=== PATIENT | male | born 1950 | race Caucasian/White ===

== ENCOUNTER 2018-12-29 17:56 | Emergency (ER) | payer MEDICARE ==
[2018-12-29 18:40] LABS: BASOPHILS # (AUTO) 0.1 10^3/uL (0.0-0.1); BASOPHILS % (AUTO) 0.5 %; EOSINOPHILS % (AUTO) 0.1 %; HGB - HEMOGLOBIN 13.3 g/dL (14.0-18.0); LYMPHOCYTES # (AUTO) 1.4 10^3/uL (1.5-3.5); LYMPHOCYTES % (AUTO) 9.4 %; MEAN CORPUSCULAR HEMOGLOBIN 30.9 pg (27.0-31.0); MEAN CORPUSCULAR HGB CONC 34.3 g/dL (32.0-36.0); MEAN CORPUSCULAR VOLUME 90.2 fL (80.0-94.0); MEAN PLATELET VOLUME 7.2 fL (7.4-11.4); MONOCYTES # (AUTO) 0.8 10^3/uL (0.0-1.0); MONOCYTES % (AUTO) 5.5 %; NEUTROPHILS # (AUTO) 12.3 10^3/uL (1.5-6.6); NEUTROPHILS % (AUTO) 84.5 %; PLT - PLATELET COUNT 285 10^3/uL (130-450); RED BLOOD COUNT 4.32 10^6/uL (4.70-6.10); RED CELL DISTRIBUTION WIDTH 12.5 % (12.0-15.0); WHITE BLOOD COUNT 14.6 x10^3/uL (4.8-10.8)
[2018-12-29] MEDS ORDERED: MORPHINE 2 MG/ML CARPUJECT IVP STA (18:50)
--- NOTE | 2018-12-29 18:53 | ED Physician Documentation ---
PD HPI ABD PAIN - Stated complaint Stated Complaint: ABD PX - Chief complaint Chief Complaint: Abd Pain - History obtained from History obtained from: Patient - History of Present Illness Timing - onset: Today (Fairly abruptly at noon today he developed lower abdominal pain associated with dry heaves but the nausea is gone. He tried having bowel movements several times thinking it might help but it did not. It actually turned a little watery. He thinks it is reminiscent of prior diverticulitis. He is never had a colonoscopy before. He does have coronary disease with remote bypass, cardiac arrest with AICD and stenting.) Review of Systems Ten Systems: 10 systems reviewed and negative Constitutional: denies: Fever, Chills Cardiac: denies: Chest pain / pressure, Palpitations Respiratory: denies: Dyspnea, Cough PD PAST MEDICAL HISTORY - Past Medical History Past Medical History: Yes Cardiovascular: Hypertension, [place] - Past Surgical History Past Surgical History: Yes Cardiovascular: CABG, Coronary stent - Present Medications Home Medications: Ambulatory Orders Medication Instructions Recorded Confirmed Ciprofloxacin HCl [Cipro] 500 mg PO BID #14 tablet 12/29/18 Clopidogrel [Plavix] 1 tab PO DAILY 12/29/18 12/29/18 Hydrocodone/Acetaminophen 1 - 2 each PO Q6H PRN #14 tablet 12/29/18 [Hydrocodon-Acetaminophen 5-325] Metoprolol Tartrate 1 tab PO BID 12/29/18 12/29/18 Metronidazole [Flagyl] 500 mg PO TID #20 tablet 12/29/18 Simvastatin 40 mg PO DAILY 12/29/18 12/29/18 Venlafaxine ER [Effexor ER] 1 tab PO DAILY 12/29/18 12/29/18 amLODIPine [Norvasc] 1 tab PO DAILY 12/29/18 12/29/18 - Allergies Allergies/Adverse Reactions: Allergies Allergy/AdvReac Type Severity Reaction Status Date / Time Penicillins Allergy Rash Verified 12/29/18 18:05 - Social History Does the pt drink ETOH?: No - Family History Family history: reports: Non contributory PD ED PE NORMAL - Vitals Vital signs reviewed: Yes - General General: Alert and oriented X 3, No acute distress - HEENT HEENT: PERRL, EOMI - Neck Neck: Supple, no meningeal sign, No bony TTP - Cardiac Cardiac: RRR, No murmur - Respiratory Respiratory: No respiratory distress, Clear bilaterally - Abdomen Abdomen: Normal bowel sounds, Soft, Other (Mild diffuse and significant left lower quadrant tenderness without surgical signs) - Back Back: No CVA TTP, No spinal TTP - Derm Derm: Normal color, Warm and dry - Extremities Extremities: No edema, No calf tenderness / cord - Neuro Neuro: Alert and oriented X 3, Normal speech - Psych Psych: Normal mood, Normal affect Results - Vitals Vitals: Vital Signs - 24 hr 12/29/18 12/29/18 18:02 18:38 Temperature 35.7 C L Heart Rate 83 Respiratory 14 18 Rate Blood Pressure 199/90 H O2 Saturation 97 - Labs Labs: Laboratory Tests 12/29/18 12/29/18 12/29/18 18:34 18:34 19:25 WBC 14.6 H RBC 4.32 L Hgb 13.3 L Hct 39.0 L MCV 90.2 MCH 30.9 MCHC 34.3 RDW 12.5 Plt Count 285 MPV 7.2 L Neut # (Auto) 12.3 H Lymph # (Auto) 1.4 L [place] # (Auto) 0.8 Eos # (Auto) 0.0 Baso # (Auto) 0.1 Absolute Nucleated RBC 0.00 Nucleated RBC % 0.0 Sodium 135 Potassium 4.2 Chloride 101 Carbon Dioxide 22 Anion Gap 12.0 BUN 16 Creatinine 0.9 Estimated GFR (MDRD) 84 L Glucose 173 H Calcium 8.6 Total Bilirubin 0.9 AST 30 ALT 27 Alkaline Phosphatase 69 Total Protein 6.8 Albumin 3.6 Globulin 3.2 Albumin/Globulin Ratio 1.1 Lipase 23 Urine Color YELLOW Urine Clarity CLEAR Urine pH 6.0 Ur Specific [place] 1.020 Urine Protein NEGATIVE Urine Glucose (UA) NEGATIVE Urine Ketones 40 H Urine Occult Blood SMALL H Urine Nitrite NEGATIVE Urine Bilirubin NEGATIVE Urine Urobilinogen 0.2 (NORMAL) Ur Leukocyte Esterase NEGATIVE Urine RBC 0-5 Urine WBC 0-3 Ur Squamous Epith Cells MOD Squamous H Urine Bacteria None Seen Ur Microscopic Review INDICATED Urine Culture Comments NOT INDICATED - Rads (name of study) CT A/P Radiology: EMP read contemporaneously (Diverticulosis without diverticulitis. Mild to moderate right hydronephrosis with perinephric inflammation without obstructing stone identified, could be a recently passed stone or infection.) PD MEDICAL DECISION MAKING - ED course ED course: 68-year-old gentleman with lower abdominal pain today, exam more consistent with diverticulitis than anything else. He is only been in pain for about 8 hours now so I suspect the CT at this point is a false negative for diverticulitis. There is no evidence on the urinalysis of any acute process and his pain does not radiate to the right side or flank. Departure - Departure Disposition: Home, Self Care Clinical Impression: Diverticulitis of gastrointestinal tract Hydronephrosis Qualifiers: Hydronephrosis type: unspecified Qualified Code(s): N13.30 - Unspecified hydronephrosis Condition: Good Record reviewed to determine appropriate education?: Yes Instructions: ED Diverticulitis Prescriptions: Ciprofloxacin HCl [Cipro] 500 mg PO BID #14 tablet Hydrocodone/Acetaminophen [Hydrocodon-Acetaminophen 5-325] 1 - 2 each PO Q6H PRN #14 tablet PRN Reason: pain Metronidazole [Flagyl] 500 mg PO TID #20 tablet Comments: Do not drink alcohol while on the antibiotics. Return for new or worsening symptoms. You do have a swollen right kidney, I do not have a good explanation for that as it does not fit your clinical symptoms. Recheck this with your doctor, also as discussed since you have never had a colonoscopy need to schedule one. Return if not better in 24 hours.
[2018-12-29 18:54] LABS: ALBUMIN 3.6 g/dL (3.2-5.5); ALBUMIN/GLOBULIN RATIO 1.1 (1.0-2.2); BILIRUBIN,TOTAL 0.9 mg/dL (0.2-1.0); CALCIUM 8.6 mg/dL (8.5-10.3); CREATININE 0.9 mg/dL (0.6-1.2); TOTAL PROTEIN 6.8 g/dL (6.7-8.2)
[2018-12-29] MEDS ORDERED: IOVERSOL 320 100 ML VIAL IVP ONE ×2 (19:07→19:18)
[2018-12-29 19:40] LABS: BILIRUBIN,URINE NEGATIVE (NEGATIVE); GLUCOSE, URINE (UA) NEGATIVE (NEGATIVE); KETONES,URINE (UA) 40 mg/dL (NEGATIVE); LEUKOCYTE ESTERASE, URINE NEGATIVE (NEGATIVE); NITRITE,URINE NEGATIVE (NEGATIVE); OCCULT BLOOD,URINE SMALL (NEGATIVE); PROTEIN,URINE NEGATIVE (NEGATIVE); UROBILINOGEN,URINE 0.2 (NORMAL) E.U./dL (NORMAL)
[2018-12-29 19:53] LABS: CLARITY,URINE CLEAR (CLEAR)
--- NOTE | 2018-12-29 19:54 | CT Report ---
Reason: IV only, low abd pain Procedure Date: 12/29/2018 Accession Number: [id number] / [id number] Procedure: CT - Abdomen/Pelvis W CPT Code: FULL RESULT: EXAM: CT ABDOMEN AND PELVIS EXAM DATE: 12/29/2018 07:16 PM. CLINICAL HISTORY: IV only, low abd pain. COMPARISONS: None. TECHNIQUE: Routine helical CT imaging was performed through the abdomen and pelvis. IV contrast: OPTI 320 100mL. Enteric contrast: No. Reconstructions: Coronal and sagittal. In accordance with CT protocol optimization, one or more of the following dose reduction techniques were utilized for this exam: automated exposure control, adjustment of mA and/or KV based on patient size, or use of iterative reconstructive technique. FINDINGS: Lung Bases: Coronary artery disease. AICD lead is in the right ventricle. Normal heart size. Liver: No focal lesion. Gallbladder/Bile Ducts: Unremarkable. Spleen: Normal. Pancreas: Atrophic. Adrenal Glands: Normal. Kidneys: Mild to moderate right hydronephrosis with perinephric inflammation and mildly delayed enhancement compared to the left kidney. No cortical hypoattenuation. No obstructing stone or lesion identified The left kidney is unremarkable. Peritoneal Cavity/Bowel: No bowel obstruction. Diverticulosis without acute inflammatory changes. No free fluid, free air or adenopathy. No acute inflammatory process. Normal appendix. Pelvic Organs: Unremarkable bladder without visualized stone. Prostate gland is unremarkable. Vasculature: Atherosclerosis. No aortic aneurysm. Bones: Lumbar facet arthrosis. Other: None. IMPRESSION: 1. Mild to moderate right hydronephrosis with perinephric inflammation and mildly delayed enhancement relative to the left kidney. No obstructing stone identified. These findings may be due to a recently passed stone. Infection difficult to exclude. 2. Diverticulosis without acute diverticulitis. RADIA
[2018-12-29 20:05] LABS: BACTERIA,URINE None Seen /HPF (None Seen); RBC,URINE 0-5 /HPF (0-5); SQUAMOUS EPITHELIAL CELL,UR MOD Squamous (<= Few)
[2018-12-29] MEDS ORDERED: metroNIDAZOLE 250 MG TABLET PO STA (20:22)
[2018-12-29] MEDS ORDERED: HYDROcod/ACET 5/325 Prepack 4 PO STA (20:22)
[2018-12-29] MEDS ORDERED: CIPROFLOXACIN 250 MG TABLET PO STA (20:22)
[2018-12-29] MEDS ORDERED: metroNIDAZOLE 250 MG TABLET PO ONE (20:55)
[2018-12-29 21:02] VITALS: BP 187/87
== END 2018-12-29 21:02 | disposition home or self-care (01) ==
LOC: ED 17:56
DX: K57.92 Diverticulitis of intestine, part unspecified, without perforation or abscess without bleeding (principal); N13.30 Unspecified hydronephrosis; I10 Essential (primary) hypertension; Z95.1 Presence of aortocoronary bypass graft
CPT/HCPCS: 36415; 74177; 80053; 81001; 83690; 85025; 96374; 99283; A9270; Q9967; 81003; 87086

== ENCOUNTER 2019-02-27 05:12 | Emergency (ER) | payer MEDICARE ==
[2019-02-27] MEDS ORDERED: ONDANSETRON 4 MG/2 ML VIAL IVP STA (06:00)
[2019-02-27] MEDS ORDERED: KETOROLAC 30 MG/ML VIAL IVP STA (06:00)
[2019-02-27] MEDS ORDERED: SODIUM CHLORIDE 0.9% 1,000 ML IV ONE (06:00)
--- NOTE | 2019-02-27 06:05 | ED Physician Documentation ---
PD HPI ABD PAIN - Stated complaint Stated Complaint: ABD PX - Chief complaint Chief Complaint: Abd Pain - History obtained from History obtained from: Patient - History of Present Illness Timing - onset: Enter time (2300), Last night Timing - duration: Hours Timing - details: Abrupt onset, Still present Quality: Sharp, Pain Location: RLQ Radiation: Right flank Improved by: Other (nothing) Worsened by: Other (nothing) Associated symptoms: Nausea, Vomiting Similar symptoms before: Diagnosis (Renal stone, diverticulitis) Recently seen: Emergency Dept - Additional information Additional information: 68-year-old male with a prior history of coronary artery disease status post cardiac arrest with a AICD in place Has developed acute right lower quadrant abdominal pain last night at about 11 PM. He states that about 1 AM he began to have some vomiting and he vomited bile and has had dry heaves. He has had an episode of left-sided pain which he states was much less in the degree of pain about 6 weeks ago. At that time he was treated for diverticulitis and he states that it took about the whole 10 days to week to resolve that illness. Review of Systems Constitutional: denies: Fever Eyes: denies: Decreased vision Ears: denies: Ear pain Nose: denies: Rhinorrhea / runny nose, Congestion Throat: denies: Sore throat Cardiac: denies: Chest pain / pressure, Palpitations Respiratory: denies: Dyspnea, Cough GI: reports: Abdominal Pain, Nausea, Vomiting : denies: Dysuria, Frequency Skin: denies: Rash, Lesions Musculoskeletal: reports: Back pain. denies: Neck pain, Extremity pain Neurologic: denies: Generalized weakness, Focal weakness, Numbness, Difficulty speaking PD PAST MEDICAL HISTORY - Past Medical History Past Medical History: Yes Cardiovascular: Hypertension, High cholesterol, Coronary artery disease, [place] Endocrine/Autoimmune: Type 2 diabetes - Past Surgical History Past Surgical History: Yes Cardiovascular: CABG, Coronary stent, AICD - Present Medications Home Medications: Ambulatory Orders Medication Instructions Recorded Confirmed Clopidogrel [Plavix] 1 tab PO DAILY 12/29/18 02/27/19 RX: Metoprolol Tartrate 1 tab PO BID 12/29/18 02/27/19 RX: Simvastatin 40 mg PO DAILY 12/29/18 02/27/19 RX: Venlafaxine ER [Effexor ER] 1 tab PO DAILY 12/29/18 02/27/19 RX: amLODIPine [Norvasc] 1 tab PO DAILY 12/29/18 02/27/19 Hydrocodone/Acetaminophen 1 - 2 each PO Q6H PRN #14 tablet 02/27/19 [Hydrocodon-Acetaminophen 5-325] RX: Aspirin 81 mg PO 02/27/19 metFORMIN [Glucophage] 500 mg PO BID 02/27/19 02/27/19 - Allergies Allergies/Adverse Reactions: Allergies Allergy/AdvReac Type Severity Reaction Status Date / Time Penicillins Allergy Rash Verified 12/29/18 18:05 - Social History Does the pt smoke?: No Smoking Status: Former smoker Does the pt drink ETOH?: Yes Does the pt have substance abuse?: No PD ED PE NORMAL - Vitals Vital signs reviewed: Yes (hypertensive ) - General General: Alert and oriented X 3, No acute distress, Well developed/nourished - HEENT HEENT: Atraumatic, PERRL, EOMI - Neck Neck: Supple, no meningeal sign, No bony TTP - Cardiac Cardiac: RRR, No murmur - Respiratory Respiratory: No respiratory distress, Clear bilaterally - Abdomen Abdomen: Soft, Non tender, Other (large protruberant abdomen without tenderness. ) - Back Back: No CVA TTP, No spinal TTP - Derm Derm: Normal color, Warm and dry, No rash - Extremities Extremities: No deformity, No edema - Neuro Neuro: Alert and oriented X 3, hospice volunteer coordinator 2-12 intact, No motor deficit, No sensory deficit, Normal speech Eye Opening: Spontaneous Motor: Obeys Commands Verbal: Oriented GCS Score: 15 - Psych Psych: Normal mood, Normal affect Results - Vitals Vitals: Vital Signs - 24 hr 02/27/19 02/27/19 05:15 06:31 Temperature 36.6 C Heart Rate 65 59 L Respiratory 20 16 Rate Blood Pressure 212/97 H 169/80 H O2 Saturation 99 98 Oxygen O2 Source Room air - EKG (time done) 0535 Rate: Rate (enter#) (63) Rhythm: NSR Ischemia: Normal ST segments Compare to prior EKG: Old EKG unavailable Computer interpretation: Agree with computer - Labs Labs: Laboratory Tests 02/27/19 02/27/19 02/27/19 05:30 05:30 05:30 WBC 17.7 H RBC 4.36 L Hgb 13.8 L Hct 39.7 L MCV 91.2 MCH 31.7 H MCHC 34.7 RDW 13.0 Plt Count 331 MPV 7.7 Neut # (Auto) 13.1 H Lymph # (Auto) 2.9 Gem # (Auto) 1.4 H Eos # (Auto) 0.1 Baso # (Auto) 0.1 Absolute Nucleated RBC 0.02 Nucleated RBC % 0.1 Sodium 133 L Potassium 4.2 Chloride 97 L Carbon Dioxide 22 Anion Gap 14.0 H BUN 16 Creatinine 1.0 Estimated GFR (MDRD) 75 L Glucose 205 H Lactic Acid Calcium 9.4 Total Bilirubin 0.6 AST 26 ALT 18 Alkaline Phosphatase 68 Troponin I < 0.04 Total Protein 7.6 Albumin 4.0 Globulin 3.6 Albumin/Globulin Ratio 1.1 Lipase 24 02/27/19 05:30 WBC RBC Hgb Hct MCV MCH MCHC RDW Plt Count MPV Neut # (Auto) Lymph # (Auto) Gem # (Auto) Eos # (Auto) Baso # (Auto) Absolute Nucleated RBC Nucleated RBC % Sodium Potassium Chloride Carbon Dioxide Anion Gap BUN Creatinine Estimated GFR (MDRD) Glucose Lactic Acid 2.8 H Calcium Total Bilirubin AST ALT Alkaline Phosphatase Troponin I Total Protein Albumin Globulin Albumin/Globulin Ratio Lipase - Rads (name of study) CT ab/pel without Radiology: Prelim report reviewed (Impression: 1. Moderate right-sided hydronephrosis secondary to obstructing 3 mm right UPJ stone. Perinephric and bryanna-ureteroenteric fat stranding is present. 2 There are no additional intrarenal stones within the right or left kidney.), EMP read indepedently, See rad report Procedures - Bedside sono Bedside sono by EMP: With the use of bedside ultrasound the right kidney is imaged it is sonographically nontender there is evidence of hydronephrosis. - IVC sono (time) 0600 Bedside IVC sono: IVC measures (cm) (1.14), IVC collapsed c insp (cm) (complete), Dehydration (est 1-2 liter deficit) PD MEDICAL DECISION MAKING - ED course Complexity details: reviewed results, re-evaluated patient, considered differential, d/w patient ED course: 68-year-old male presenting with right lower quadrant abdominal pain without tenderness has a 3 mm obstructing stone at the UPJ and he has relief with the use of 30 mg of Toradol intravenously and saline 1 liter. Departure - Departure Disposition: 01 Home, Self Care Clinical Impression: Ureterolithiasis Condition: Stable Instructions: ED Stone Renal W Colic Follow-Up: RIDGE RUTH MD [Physician No Access] - Prescriptions: Hydrocodone/Acetaminophen [Hydrocodon-Acetaminophen 5-325] 1 - 2 each PO Q6H PRN #14 tablet PRN Reason: pain
[2019-02-27 06:07] LABS: BASOPHILS # (AUTO) 0.1 10^3/uL (0.0-0.1); BASOPHILS % (AUTO) 0.7 %; EOSINOPHILS # (AUTO) 0.1 10^3/uL (0.0-0.7); EOSINOPHILS % (AUTO) 0.6 %; HGB - HEMOGLOBIN 13.8 g/dL (14.0-18.0); LYMPHOCYTES # (AUTO) 2.9 10^3/uL (1.5-3.5); LYMPHOCYTES % (AUTO) 16.2 %; MEAN CORPUSCULAR HEMOGLOBIN 31.7 pg (27.0-31.0); MEAN CORPUSCULAR HGB CONC 34.7 g/dL (32.0-36.0); MEAN CORPUSCULAR VOLUME 91.2 fL (80.0-94.0); MEAN PLATELET VOLUME 7.7 fL (7.4-11.4); MONOCYTES # (AUTO) 1.4 10^3/uL (0.0-1.0); MONOCYTES % (AUTO) 8.2 %; NEUTROPHILS # (AUTO) 13.1 10^3/uL (1.5-6.6); NEUTROPHILS % (AUTO) 74.3 %; PLT - PLATELET COUNT 331 10^3/uL (130-450); RED BLOOD COUNT 4.36 10^6/uL (4.70-6.10); WHITE BLOOD COUNT 17.7 x10^3/uL (4.8-10.8)
[2019-02-27 06:17] LABS: ALBUMIN/GLOBULIN RATIO 1.1 (1.0-2.2); BILIRUBIN,TOTAL 0.6 mg/dL (0.2-1.0); CALCIUM 9.4 mg/dL (8.5-10.3); TOTAL PROTEIN 7.6 g/dL (6.7-8.2)
--- NOTE | 2019-02-27 06:59 | CT Report ---
Reason: RLQ pain non-tender bad pain Procedure Date: 02/27/2019 Accession Number: [id number] / [id number] Procedure: CT - Abdomen/Pelvis WO CPT Code: FULL RESULT: EXAM: CT ABDOMEN AND PELVIS (CT KUB) EXAM DATE: 02/27/2019 06:30 AM. CLINICAL HISTORY: Severe right lower abdominal pain since 7:30 PM. Nausea and vomiting. COMPARISONS: ABDOMEN/PELVIS W/ 12/29/2018 7:16 PM. TECHNIQUE: Routine axial helical CT imaging was performed through the abdomen and pelvis without IV contrast. Reconstructions: Coronal and sagittal. In accordance with CT protocol optimization, one or more of the following dose reduction techniques were utilized for this exam: automated exposure control, adjustment of mA and/or KV based on patient size, or use of iterative reconstructive technique. FINDINGS: Right Kidney/Ureter: There is moderate right-sided hydroureteronephrosis secondary to an obstructing 3 mm stone at the right UPJ (image 62 of series 5). Overall, this is similar to the prior study. There is associated moderate right sided perinephric fat stranding noted. No additional intrarenal stones on the right or the left kidney seen at this time. No definite renal mass within the confines of a non-contrast exam. Left Kidney/Ureter: No stones. No hydronephrosis or hydroureter. No definite renal mass within the confines of a non-contrast exam. Abdominal Solid Organs: Abdominal parenchymal organs are without significant abnormality within the confines of a noncontrast exam. Bowel: No evidence of bowel obstruction. Severe sigmoid diverticulosis is noted without definite evidence of diverticulitis. There is also moderate to severe descending colon diverticulosis and mild to moderate transfers colon diverticulosis. Appendix: Normal. Lymph Nodes: No definite pathologic lymphadenopathy. Fluid: No significant ascites. Vasculature: Normal caliber aorta. Pelvis: No bladder stones. Visualized pelvic organs are without significant abnormality within the confines of a noncontrast exam. Bones: No definite suspicious bony lesions demonstrated. Lower Chest: No significant lung base consolidation or effusion. IMPRESSION: 1. Moderate right-sided hydroureteronephrosis secondary to an obstructing 3 mm right UPJ stone. Perinephric and periureteric fat stranding is present. 2. There are no additional intrarenal stones within the right or left kidney. RAD[facility]
[2019-02-27 07:48] LABS: BILIRUBIN,URINE NEGATIVE (NEGATIVE); GLUCOSE, URINE (UA) NEGATIVE (NEGATIVE); KETONES,URINE (UA) 15 mg/dL (NEGATIVE); LEUKOCYTE ESTERASE, URINE NEGATIVE (NEGATIVE); NITRITE,URINE NEGATIVE (NEGATIVE); OCCULT BLOOD,URINE LARGE (NEGATIVE); PH,URINE 6.5 PH (5.0-7.5); PROTEIN,URINE TRACE mg/dL (NEGATIVE); UROBILINOGEN,URINE 0.2 (NORMAL) E.U./dL (NORMAL)
[2019-02-27 08:05] LABS: CLARITY,URINE HAZY (CLEAR)
[2019-02-27 08:06] LABS: BACTERIA,URINE None Seen /HPF (None Seen); RBC,URINE TNTC /HPF (0-5); SQUAMOUS EPITHELIAL CELL,UR FEW Squamous (<= Few)
[2019-02-27 08:07] LABS: CASTS, URINE 0-2 Course Granular /LPF
[2019-02-27 08:40] VITALS: BP 166/88
== END 2019-02-27 08:36 | disposition home or self-care (01) ==
LOC: ED 05:12
DX: N13.2 Hydronephrosis with renal and ureteral calculous obstruction (principal); E86.0 Dehydration; I10 Essential (primary) hypertension; E11.9 Type 2 diabetes mellitus without complications; Z79.84 Long term (current) use of oral hypoglycemic drugs; I25.10 Atherosclerotic heart disease of native coronary artery without angina pectoris; I25.2 Old myocardial infarction; Z95.810 Presence of automatic (implantable) cardiac defibrillator; Z95.1 Presence of aortocoronary bypass graft; Z95.5 Presence of coronary angioplasty implant and graft; Z79.02 Long term (current) use of antithrombotics/antiplatelets; Z79.82 Long term (current) use of aspirin
CPT/HCPCS: 36415; 74176; 80053; 81001; 81003; 83605; 83690; 84484; 85025; 87086; 93005; 96374; 99283; 99284

== ENCOUNTER 2023-05-01 14:17 | Emergency (ER) | payer MEDICARE ==
[2023-05-01] MEDS ORDERED: ONDANSETRON 4 MG/2 ML VIAL IVP STA (14:28)
[2023-05-01] MEDS ORDERED: SODIUM CHLORIDE 0.9% 1,000 ML IV STA (14:28)
[2023-05-01] MEDS ORDERED: KETOROLAC 15 MG/ML VIAL IVP STA (14:29)
--- NOTE | 2023-05-01 14:37 | ED Physician Documentation ---
History of Present Illness - Stated complaint Stated Complaint: LT SIDE PX,DISCOMFORT - Chief complaint Chief Complaint: General - Additonal information Additional information: 72-year-old male presents emergency department for evaluation of 2 days left- sided low back pain with radiation to the groin. Reports the pain as constant and sharp. It got so painful this morning he had difficulty getting out of bed. He denies fevers, dysuria or diarrhea. He does report 2 days of constipation. He states that in the past he has had similar symptoms on the right side which did show a right-sided ureter stone. Past medical history most significant for hypertension, diabetes and coronary artery disease status post CABG as well as stenting x4. Currently on Plavix and Flomax. This time he denies chest pain or shortness of air Review of Systems Constitutional: denies: Fever Cardiac: reports: Reviewed and negative Respiratory: reports: Reviewed and negative GI: reports: Abdominal Pain, Constipation : reports: Reviewed and negative Skin: reports: Reviewed and negative PD PAST MEDICAL HISTORY - Past Medical History Cardiovascular: Hypertension, High cholesterol, Coronary artery disease, [place] Endocrine/Autoimmune: Type 2 diabetes - Past Surgical History Past Surgical History: Yes Cardiovascular: CABG, Coronary stent, AICD - Present Medications Home Medications: Ambulatory Orders Medication Instructions Recorded Confirmed Clopidogrel [Plavix] 1 tab PO DAILY 12/29/18 02/27/19 Metoprolol Tartrate 1 tab PO BID 12/29/18 02/27/19 Simvastatin 40 mg PO DAILY 12/29/18 02/27/19 Venlafaxine ER [Effexor ER] 1 tab PO DAILY 12/29/18 02/27/19 amLODIPine [Norvasc] 1 tab PO DAILY 12/29/18 02/27/19 Aspirin 81 mg PO 02/27/19 Hydrocodone/Acetaminophen 1 - 2 each PO Q6H PRN #14 tablet 02/27/19 [Hydrocodon-Acetaminophen 5-325] metFORMIN [Glucophage] 500 mg PO BID 02/27/19 02/27/19 Ciprofloxacin HCl [Cipro] 500 mg PO BID #14 tablet 05/01/23 HYDROcod/ACETAM 5/325 [[place] 5/325] 1 tablet PO BID PRN #10 tablet 05/01/23 metroNIDAZOLE [Flagyl] 500 mg PO BID 7 Days #14 tablet 05/01/23 - Allergies Allergies/Adverse Reactions: Allergies Allergy/AdvReac Type Severity Reaction Status Date / Time Penicillins Allergy Rash Verified 12/29/18 18:05 - Social History Does the pt smoke?: No Smoking Status: Former smoker Does the pt drink ETOH?: Yes Does the pt have substance abuse?: No PD ED PE NORMAL - General General: Alert and oriented X 3, No acute distress, Well developed/nourished - HEENT HEENT: Atraumatic - Neck Neck: Supple, no meningeal sign - Cardiac Cardiac: RRR, No murmur - Respiratory Respiratory: No respiratory distress, Clear bilaterally - Abdomen Abdomen: Normal bowel sounds, Soft. No: Non tender (Focal tenderness in the left lower quadrant with radiation to the groin. 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 Eye Opening: Spontaneous Motor: Obeys Commands Verbal: Oriented GCS Score: 15 Results - Vitals Vitals: Vital Signs - 24 hr 05/01/23 14:24 Temperature 36.8 C Heart Rate 100 Respiratory 20 Rate Blood Pressure 151/111 H O2 Saturation 97 Oxygen O2 Source Room air - Labs Labs: Laboratory Tests 05/01/23 05/01/23 05/01/23 14:39 14:39 15:08 WBC 12.5 H RBC 4.67 L Hgb 14.9 Hct 43.1 MCV 92.3 MCH 31.9 H MCHC 34.6 RDW 12.4 Plt Count 325 MPV 9.1 Neut # (Auto) 7.0 H Lymph # (Auto) 3.8 H [place] # (Auto) 1.4 H Eos # (Auto) 0.2 Baso # (Auto) 0.1 Absolute Nucleated RBC 0.00 Nucleated RBC % 0.0 Sodium 133 L Potassium 3.7 Chloride 99 L Carbon Dioxide 21 Anion Gap 13.0 BUN 9 Creatinine 0.8 Estimated GFR (MDRD) 96 Glucose 196 H Calcium 8.8 Total Bilirubin 1.0 AST 26 ALT 23 Alkaline Phosphatase 65 Total Protein 7.5 Albumin 3.9 Globulin 3.6 Albumin/Globulin Ratio 1.1 Lipase 29 Urine Color YELLOW Urine Clarity CLEAR Urine pH 5.0 Ur Specific Grubbs 1.025 Urine Protein NEGATIVE Urine Glucose (UA) NEGATIVE Urine Ketones NEGATIVE Urine Occult Blood TRACE-INTA Urine Nitrite NEGATIVE Urine Bilirubin NEGATIVE Urine Urobilinogen 0.2 (NORMAL) Ur Leukocyte Esterase NEGATIVE Ur Microscopic Review NOT INDICATED Urine Culture Comments NOT INDICATED - Rads (name of study) CT abd Relevant Findings:: Final report received (Mild left pelviectasis with normal diameter ureter. No obstructing calculus. This was also seen previously and may represent longstanding mild UPJ obstruction. Colonic diverticulosis. Questionable mild fat stranding around the sigmoid colon could represent resolving or minimal inflammation. Mode) PD Medical Decision Making - ED course Complexity details: reviewed results, re-evaluated patient, d/w patient ED course: 72-year-old male presents emergency department for evaluation of acute left low back, abdominal pain that radiates to the groin. He does have a remote history of ureter colic on the right side. He has no history of previous colonoscopy and states that he has been constipated for 2 days. On exam he had quite reproducible pain in the left lower quadrant of the abdomen. Obtain CBC, electrolytes and urinalysis. Per my interpretation there is mild leukocytosis with white count of 12.5 thousand. He has preserved renal function. His urinalysis shows no signs of infection. I considered differentials that included but was not limited tonephro and ureterolithiasis, small bowel obstruction and diverticulitis. This CT scan does show some mild left pelviectasis with a normal diameter ureter. There was no obstructing calculus. The patient may have a longstanding mild UPJ obstruction. He is currently on Flomax. CT scan also indicates the patient has diverticulosis with possible fat stranding around the sigmoid colon which could be resolving or minimal inflammation. Patient is noted to have a very large rectal stool ball. I discussed the findings with the patient. Clinically I suspect he has chronic pelviectasis and for this I am making the recommendation that he remain on the Flomax and request rhe referral to urology through his primary care doctor. However given the mild leukocytosis as well as some fat stranding around the sigmoid colon and I feel that he would best be treated by a course of Augmentin. The patient is advised to have very close follow-up with his PCP as he should be referred for colonoscopy. Given the mild obstipation I am also recommending MiraLAX. I advised patient that should his symptoms not improve with this treatment or markedly worsen he will return immediately to the ER. I am prescribing a short course of short-acting opioid pain medication for this patient. 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 I have discussed that the opioids are for short term therapy only, and will not be refilled from the ED. Departure - Departure Disposition: 01 Home, Self Care Clinical Impression: Left lower quadrant abdominal pain, Pelviectasis Constipation Qualifiers: Constipation type: unspecified constipation type Qualified Code(s): K59.00 - Constipation, unspecified Condition: Stable Record reviewed to determine appropriate education?: Yes Instructions: ED Constipation Prescriptions: Ciprofloxacin HCl [Cipro] 500 mg PO BID #14 tablet metroNIDAZOLE [Flagyl] 500 mg PO BID 7 Days #14 tablet HYDROcod/ACETAM 5/325 [[place] 5/325] 1 tablet PO BID PRN #10 tablet PRN Reason: Pain Comments: Alex you are seen today because you have been having pain in the left lower quadrant of your abdomen. You have also been mildly constipated. The CT scan suggests some mild swelling within the left kidney but there is no o bvious obstructing renal or ureter calculus. It is possible however that you could have small stone at the junction near the bladder and the ureter. Please discuss this finding with your primary doctor and request referral to urology. Continue to take the Flomax. The CT scan also shows some possible fat stranding around your colon. It does not suggest diverticulitis but because you are constipated I would like you to start taking MiraLAX each day until you have 2 or 3 watery bowel movements. I do feel that you would benefit from a short course of antibiotics a prescription for Cipro and Flagyl has been sent to the [facility] in [place]. A limited prescription for [place] has also been sent there. Is very important you discuss this ED visit with your primary care doctor. You should be referred for a colonoscopy as you have never had [address] scan cannot find masses or lesions such as cancers that could be contributing to your symptoms. Return to the ER if you find you are having worsening symptoms, fevers, bloody bowel movements, severe chest pain or shortness of air. I am prescribing a short course of narcotic pain medication for you. These are potentially dangerous and addictive medications that should be used carefully. These medications may constipate you. Take an jmys-chw-wgjhrca stool softener (docusate) twice daily with plenty of water while taking these medications. If you go 24 hours without a bowel movement, take rkus-yxp-yazgzvx miralax, per package instructions. Do not drink or drive while taking these medications. If you received narcotic or sedating medications while in the emergency department, do not drive for 24 hours. Store this medication in a safe, secure place and out of reach of children. It is a violation of federal law to give or sell this medication to another person or to use in a manner other than prescribed. The ED will not refill narcotic prescriptions, including prescriptions lost or stolen. To dispose of unwanted medications: 1. [facility] [address] in [place] has a medication drop box. They accept prescription medications (in pill form) Thursday through Thursday 9:00 a.m. to 5:00 p.m. 2. The [facility] [employer] accepts prescription medications (in pill form only) for disposal year round. Call for more information. 3. Contact the [facility] for the next [facility] sponsored prescription drug collection event. , [phone], or [phone]; Note that many narcotic pain relievers also contain Tylenol/acetaminophen. Please ensure that your total dose of acetaminophen from all sources does not exceed 3 g (3000 mg) per day.
[2023-05-01 14:46] LABS: BASOPHILS # (AUTO) 0.1 10^3/uL (0.0-0.1); BASOPHILS % (AUTO) 1.1 %; EOSINOPHILS # (AUTO) 0.2 10^3/uL (0.0-0.7); EOSINOPHILS % (AUTO) 1.6 %; HCT - HEMATOCRIT 43.1 % (42.0-52.0); HGB - HEMOGLOBIN 14.9 g/dL (14.0-18.0); LYMPHOCYTES # (AUTO) 3.8 10^3/uL (1.5-3.5); LYMPHOCYTES % (AUTO) 30.1 %; MEAN CORPUSCULAR HEMOGLOBIN 31.9 pg (27.0-31.0); MEAN CORPUSCULAR HGB CONC 34.6 g/dL (32.0-36.0); MEAN CORPUSCULAR VOLUME 92.3 fL (80.0-94.0); MEAN PLATELET VOLUME 9.1 fL (7.4-11.4); MONOCYTES # (AUTO) 1.4 10^3/uL (0.0-1.0); NEUTROPHILS % (AUTO) 55.9 %; PLT - PLATELET COUNT 325 10^3/uL (130-450); RED BLOOD COUNT 4.67 10^6/uL (4.70-6.10); RED CELL DISTRIBUTION WIDTH 12.4 % (12.0-15.0); WHITE BLOOD COUNT 12.5 x10^3/uL (4.8-10.8)
[2023-05-01 14:57] LABS: ALBUMIN 3.9 g/dL (3.2-5.5); ALBUMIN/GLOBULIN RATIO 1.1 (1.0-2.2); CALCIUM 8.8 mg/dL (8.5-10.3); CREATININE 0.8 mg/dL (0.6-1.2); POTASSIUM 3.7 mmol/L (3.5-5.0); TOTAL PROTEIN 7.5 g/dL (6.7-8.2)
[2023-05-01 15:13] LABS: BILIRUBIN,URINE NEGATIVE (NEGATIVE); GLUCOSE, URINE (UA) NEGATIVE (NEGATIVE); KETONES,URINE (UA) NEGATIVE (NEGATIVE); LEUKOCYTE ESTERASE, URINE NEGATIVE (NEGATIVE); NITRITE,URINE NEGATIVE (NEGATIVE); OCCULT BLOOD,URINE TRACE-INTA (NEGATIVE); PROTEIN,URINE NEGATIVE (NEGATIVE); UROBILINOGEN,URINE 0.2 (NORMAL) E.U./dL (NORMAL)
[2023-05-01 15:19] LABS: CLARITY,URINE CLEAR (CLEAR)
[2023-05-01] MEDS ORDERED: iohexoL-300 100 ML VIAL ONE (15:25)
--- NOTE | 2023-05-01 16:37 | CT Report ---
PROCEDURE: ABDOMEN/PELVIS W INDICATIONS: left sided pain with radiation to groin; ? stone CONTRAST: IV 100ml omni 300 TECHNIQUE: After the administration of IV contrast contrast, 5 mm thick sections acquired from the diaphragms to the symphysis. 5 mm thick coronal and sagittal reformats were acquired. For radiation dose reducti on, the following was used: automated exposure control, adjustment of mA and/or kV according to mango ent size. COMPARISON: 02/27/2019 FINDINGS: Image quality: Good Lower chest: Left Bochdalek's hernia. Scattered scarring and atelectasis. Small hiatal hernia. Calvo ry calcifications and electrode leads. Solid organs: The liver is unremarkable. Gallbladder is unremarkable. No pathologic dilation of the b iliary tree or pancreatic duct. No splenomegaly. No adrenal nodules. No hydronephrosis or calcified stone. No significant perinephric stranding. Mild left pelviectasis wi th normal diameter ureter. Vessels and lymph nodes: Atherosclerotic calcifications. No abdominal aortic aneurysm. No pathologic lymph nodes by size criteria. Bowel and peritoneum: No small bowel obstruction. Moderate-sized rectal stool ball. Colonic diverticu losis. Normal appendix. No abscess or drainable ascites. Possible minimal fat stranding around the si gmoid colon Body wall: Unremarkable. Tiny fat-containing umbilical hernia. Pelvis: Bladder is unremarkable. Prostate is unremarkable. Bones: No acute or suspicious osseous abnormality. There are degenerative changes. IMPRESSION: Mild left pelviectasis with normal diameter ureter. No obstructing calculus. This was also seen previ ously and may represent long-standing mild UPJ obstruction. Colonic diverticulosis. Questionable mild fat stranding around the sigmoid colon could represent reso lving or minimal inflammation. Consider correlation with age-appropriate colonoscopy results. Moderat e rectal stool ball. Normal appendix. No bowel obstruction, pathologic ascites, or abscess. Reviewed by: Abdirizak Araujo MD on 05/01/2023 4:35 PM PDT Approved by: Abdirizak Araujo MD on 05/01/2023 4:35 PM PDT Station ID: [id number]
[2023-05-01 17:22] VITALS: BP 160/94
[2023-05-01] MEDS ORDERED: iohexoL-300 100 ML VIAL IVP ONE (18:05)
== END 2023-05-01 17:31 | disposition home or self-care (01) ==
LOC: ED 14:17
DX: R10.32 Left lower quadrant pain (principal); N13.30 Unspecified hydronephrosis; K59.00 Constipation, unspecified; Z87.891 Personal history of nicotine dependence
CPT/HCPCS: 36415; 74177; 80053; 81003; 83690; 85025; 96374; 96375; 99284; Q9967; 81001; 87086

== ENCOUNTER 2024-03-15 03:05 | Emergency (ER) | payer MEDICARE ==
--- NOTE | 2024-03-15 03:07 | ED Physician Documentation ---
PD HPI FOCAL NEURO - Stated complaint Stated Complaint: SLURRED SPEECH, LEFT FACIAL DROOP, ICD FIRED - History obtained from History obtained from: Patient, EMS - Additional information Additional information: BIBA. HPI from patient, EMS. Patient was awake and seated in front of his computer at home tonight. At approximately 1 AM, he got up to use the bathroom and found that he was having left-sided weakness (LUE>LLE). He then woke his up and found that when he tried to speak he had slurred speech. Denies h/o similar symptoms. Denies h/o stroke, TIA. Denies h/o GI bleeding, ICH, cancer. Denies recent surgery, injury. Review of Systems Eyes: denies: Loss of vision, Decreased vision Cardiac: reports: Reviewed and negative Respiratory: reports: Reviewed and negative GI: reports: Reviewed and negative Neurologic: reports: Focal weakness, Numbness, Difficulty speaking. denies: Confused, Altered mental status, Headache PD PAST MEDICAL HISTORY - Past Medical History Cardiovascular: Hypertension, High cholesterol, Coronary artery disease, [place] Endocrine/Autoimmune: Type 2 diabetes - Past Surgical History Past Surgical History: Yes Cardiovascular: CABG, Coronary stent, AICD - Present Medications Home Medications: Ambulatory Orders Medication Instructions Recorded Confirmed Clopidogrel [Plavix] 1 tab PO DAILY 12/29/18 02/27/19 Metoprolol Tartrate 1 tab PO BID 12/29/18 02/27/19 Simvastatin 40 mg PO DAILY 12/29/18 02/27/19 Venlafaxine ER [Effexor ER] 1 tab PO DAILY 12/29/18 02/27/19 amLODIPine [Norvasc] 1 tab PO DAILY 12/29/18 02/27/19 Aspirin 81 mg PO 02/27/19 Hydrocodone/Acetaminophen 1 - 2 each PO Q6H PRN #14 tablet 02/27/19 [Hydrocodon-Acetaminophen 5-325] metFORMIN [Glucophage] 500 mg PO BID 02/27/19 02/27/19 Ciprofloxacin HCl [Cipro] 500 mg PO BID #14 tablet 05/01/23 HYDROcod/ACETAM 5/325 [[place] 5/325] 1 tablet PO BID PRN #10 tablet 05/01/23 metroNIDAZOLE [Flagyl] 500 mg PO BID 7 Days #14 tablet 05/01/23 - Allergies Allergies/Adverse Reactions: Allergies Allergy/AdvReac Type Severity Reaction Status Date / Time Penicillins Allergy Rash Verified 03/15/24 03:37 - Social History Does the pt smoke?: No Smoking Status: Former smoker Does the pt drink ETOH?: Yes Does the pt have substance abuse?: No PD ED PE NORMAL - Vitals Vital signs reviewed: Yes - General General: Alert and oriented X 3, No acute distress, Well developed/nourished, Other (marked dysarthria) - HEENT HEENT: PERRL, Other (unable to look to his left (can track to right but both eyes stop at midline when he tries to look to his left)) - Respiratory Respiratory: No respiratory distress, Clear bilaterally - Extremities Extremities: No edema - Neuro Neuro: Alert and oriented X 3 Eye Opening: Spontaneous Motor: Obeys Commands Verbal: Oriented GCS Score: 15 PD ED PE EXPANDED - Cardiac Cardiac: Tachy, Irregularly irregular - Neuro Neuro: Weakness (left facial droop, LUE and LLE weakness (see NIHSS, below)), Abnormal sensation (significant diminished LTS left face, arm, leg), Dysarthria NIHSS - Level of Consciousness Level of consciousness: (0) Alert, Keenly responsive LOC Questions: (0) Answers both Q's correct LOC Commands: (0) Performs both correctly - Gaze Best Gaze: (1) Partial gaze palsy - Visual Visual: (0) No loss - Facial Palsy Facial Palsy: (3) Complete paralysis - Motor Arms (both separate) Motor Arm (right): (0) No drift Motor Arm (left): (2) Some effort against gravity - Motor Legs (both separate) Motor Leg (right): (0) No drift Motor Leg (left): (1) Drift - Limb Ataxia Limb Ataxia: (1) Present in 1 limb - Sensory Sensory: (2) Jjtycb-pf-dfwtb loss - Best Language Best Language: (0) No aphasia - Dysarthria Dysarthria: (2) Severe dysarthria - Extinction and Inattention (formally neg Extinction and inattention: (0) No abnormality - Total Score/Results Total Score/Result: 12 Results - Vitals Vitals: Vital Signs - 24 hr 03/15/24 03/15/24 03/15/24 03:34 03:41 03:45 Temperature 36.4 C L Heart Rate 106 H 112 H 98 Respiratory 18 18 18 Rate Blood Pressure 199/123 H 167/89 H 125/68 O2 Saturation 93 93 92 If not protocol : Oxygen Flow, liters/minute 03/15/24 03/15/24 03/15/24 03:50 03:55 04:00 Temperature Heart Rate 95 103 H 89 Respiratory 18 18 18 Rate Blood Pressure 150/84 H 145/79 H 139/86 H O2 Saturation 92 95 95 If not protocol 2 2 : Oxygen Flow, liters/minute 03/15/24 03/15/24 03/15/24 04:05 04:10 04:30 Temperature Heart Rate 85 90 94 Respiratory 18 18 18 Rate Blood Pressure 146/96 H 150/85 H 141/111 H O2 Saturation 95 95 93 If not protocol 2 2 2 : Oxygen Flow, liters/minute 03/15/24 03/15/24 05:00 05:25 Temperature Heart Rate 89 90 Respiratory 18 18 Rate Blood Pressure 147/91 H 155/63 H O2 Saturation 97 97 If not protocol 2 2 : Oxygen Flow, liters/minute Oxygen O2 Source Room air Oxygen Flow Rate 2 - EKG (time done) No standard instances EKG releavant findings:: EKG personally interpreted by author of this note. Relevant findings are: Rate: Rate (enter#) (102) Rhythm: Atrial fibrillation [place]: RAD Intervals: RBBB QRS: Normal Ischemia: Normal ST segments - Labs Labs: Laboratory Tests 03/15/24 03/15/24 03/15/24 03:24 03:24 03:24 WBC 9.2 RBC 4.23 L Hgb 13.2 L Hct 38.4 L MCV 90.8 MCH 31.2 H MCHC 34.4 RDW 12.9 Plt Count 286 MPV 9.2 Neut # (Auto) 3.8 Lymph # (Auto) 3.7 H [place] # (Auto) 1.2 H Eos # (Auto) 0.3 Baso # (Auto) 0.1 Absolute Nucleated RBC 0.00 Nucleated RBC % 0.0 PT 13.9 H INR 1.3 H APTT 29.4 Sodium 132 L Potassium 3.4 L Chloride 98 L Carbon Dioxide 22 Anion Gap 12.0 BUN 15 Creatinine 0.8 Estimated GFR (MDRD) 95 Glucose 206 H Calcium 9.0 Total Bilirubin 0.4 AST 17 ALT 18 Alkaline Phosphatase 49 Troponin I High Sens Total Protein 6.9 Albumin 3.7 Globulin 3.2 Albumin/Globulin Ratio 1.2 Lipase 31 03/15/24 03:24 WBC RBC Hgb Hct MCV MCH MCHC RDW Plt Count MPV Neut # (Auto) Lymph # (Auto) [place] # (Auto) Eos # (Auto) Baso # (Auto) Absolute Nucleated RBC Nucleated RBC % PT INR APTT Sodium Potassium Chloride Carbon Dioxide Anion Gap BUN Creatinine Estimated GFR (MDRD) Glucose Calcium Total Bilirubin AST ALT Alkaline Phosphatase Troponin I High Sens 4.8 Total Protein Albumin Globulin Albumin/Globulin Ratio Lipase - Rads (name of study) CTH Relevant Findings:: Prelim report reviewed, See rad report CTA head/neck Relevant Findings:: Prelim report reviewed, See rad report CXR Relevant Findings:: Prelim report reviewed, See rad report PD Medical Decision Making - ED course Complexity details: reviewed old records, reviewed results, re-evaluated patient, considered differential, d/w patient ED course: H&P are strongly suggestive of acute CVA. Non-contrast CTH is unremarkable and patient is within a 3-hour window of symptom onset. There are no contraindications to thrombolytics. A telestroke consultation is obtained. The neurologist agrees that thrombolytics are indicated. She reviewed with the patient the potential risks and benefits of this medication, and the patient agrees with proceeding with thrombolytic (TNK). I subsequently heard back from the neurologist (Dr. Smith) who had the chance to review the CTA head/neck images; she is finding significant right-sided ICA stenosis and is recommending transfer to a facility that can perform emergent stenting of the carotid artery. CTA head/neck does not evidence LVO. Patient is also found to be in new-onset atrial fibrillation; he says he has n ever had this diagnosis. Early in the ED stay, he is given 15 mg IV Cardizem for rapid atrial fibrillation. His initial blood pressures also were above the threshold for thrombolytics. Fortunately, the Cardizem resulted in both rate control as well as significant improvement in his blood pressure readings which were then within parameters to allow for thrombolytic therapy. He remained in atrial fibrillation for the remainder of his ED stay. Patient has ICD and this is interrogated at bedside by ED RN. I reviewed the report and subsequently heard from [employer] motor vehicle field representative who also reviewed the report and gave me her findings which include ongoing atrial fibrillation since November 2023 (continuous, not intermittent), as well as episodes of ventricular tachycardia over past few years (apparently the device has not been interrogated since 2019). There have not been any shocks delivered but overdrive pacing noted 03/01/24 for ventricular tachycardia with rate of 200 bpm. Patient is accepted for transfer by neurologist at [facility] (Dr. Coughlin). The telestroke service arranged the transfer (I did not speak directly to Dr. Coughlin). Patient is transferred via air/helicopter. - TPA CVA checklist Inclusion crititeria: positive: Sig neuro deficit, CT no bleed, Onset know < 4.5 hr Absolute contraindications: negative: SBP>185 DBP>110 s/p tx, CT shows bleed, CT shows major est CVA, Platelets <100K, PTT > 40, INR >1.7, Known bleeding disorder, Surgery/trauma < 15 days, Seizure at onset, Internal bleed < 22 days, Brain/spine surg < 3 m, Head trauma < 3 m, CVA < 3 months, Any hx ICH, Any hx brain aneurysm, Any hx brain AVM, Any hx brain tumor, Suspect SAH Relative contraindications: negative: Too severe (NIHSS>22), Too mild, Rapid improvement, Glusose <50 >400, Life expectancy < 1 yr, Severe comorbid illness, Bacterial endocarditis, Severe hepatic dz, Severe renal dz, Hemorrhagic eye condition, Septic thrombophlebitis, Infected AV shunt, On coumadin, Advanced age, Left heart thrombus Absolute contraindications if 3-4.5 hr: negative: Coumadin (any INR), Age > 80, Combo prior CVA & DM Departure - Departure Disposition: 02 Transfer Acute Care Hosp Clinical Impression: Cerebrovascular accident (CVA) Qualifiers: CVA mechanism: unspecified Qualified Code(s): I63.9 - Cerebral infarction, unspecified Atrial fibrillation Qualifiers: Atrial fibrillation type: unspecified Qualified Code(s): I48.91 - Unspecified atrial fibrillation Condition: Serious Forms: PCP List Discharge Date/Time: 03/15/24 05:39
[2024-03-15 03:33] LABS: BASOPHILS # (AUTO) 0.1 10^3/uL (0.0-0.1); BASOPHILS % (AUTO) 1.2 %; EOSINOPHILS # (AUTO) 0.3 10^3/uL (0.0-0.7); EOSINOPHILS % (AUTO) 3.5 %; HCT - HEMATOCRIT 38.4 % (42.0-52.0); HGB - HEMOGLOBIN 13.2 g/dL (14.0-18.0); LYMPHOCYTES # (AUTO) 3.7 10^3/uL (1.5-3.5); LYMPHOCYTES % (AUTO) 40.2 %; MEAN CORPUSCULAR HEMOGLOBIN 31.2 pg (27.0-31.0); MEAN CORPUSCULAR HGB CONC 34.4 g/dL (32.0-36.0); MEAN CORPUSCULAR VOLUME 90.8 fL (80.0-94.0); MEAN PLATELET VOLUME 9.2 fL (7.4-11.4); MONOCYTES # (AUTO) 1.2 10^3/uL (0.0-1.0); MONOCYTES % (AUTO) 13.4 %; NEUTROPHILS # (AUTO) 3.8 10^3/uL (1.5-6.6); NEUTROPHILS % (AUTO) 41.2 %; PLT - PLATELET COUNT 286 10^3/uL (130-450); RED BLOOD COUNT 4.23 10^6/uL (4.70-6.10); RED CELL DISTRIBUTION WIDTH 12.9 % (12.0-15.0); WHITE BLOOD COUNT 9.2 x10^3/uL (4.8-10.8)
[2024-03-15] MEDS ORDERED: iohexoL-300 100 ML VIAL ONE (03:34)
[2024-03-15] MEDS: diltiaZEM INJ 5 MG/ML VIAL IVP STA (03:36)
[2024-03-15] MEDS ORDERED: diltiaZEM INJ 5 MG/ML VIAL ONE (03:38)
[2024-03-15 03:41] LABS: PARTIAL THROMBOPLASTIN TIME 29.4 secs (24.9-33.3)
[2024-03-15 03:45] LABS: INR 1.3 (0.8-1.2); PT - PROTHROMBIN TIME 13.9 secs (9.9-12.6)
[2024-03-15 03:47] LABS: ALBUMIN 3.7 g/dL (3.2-5.5); ALBUMIN/GLOBULIN RATIO 1.2 (1.0-2.2); BILIRUBIN,TOTAL 0.4 mg/dL (0.2-1.0); CREATININE 0.8 mg/dL (0.6-1.3); POTASSIUM 3.4 mmol/L (3.5-4.5); TOTAL PROTEIN 6.9 g/dL (6.4-8.9)
[2024-03-15] MEDS: iohexoL-300 100 ML VIAL IVP ONE (03:48)
[2024-03-15] MEDS: TENECTEPLASE 50 MG/10 ML VIAL IVP STA (03:48)
[2024-03-15 05:30] VITALS: BP 155/63; O2SAT 97
--- NOTE | 2024-03-15 08:37 | XRAY Report ---
PROCEDURE: Chest 1V INDICATIONS: cva TECHNIQUE: One view of the chest was acquired. COMPARISON: CT of abdomen and pelvis dated 05/01/2023. FINDINGS: Surgical changes and devices: Left chest wall pacemaker and median sternotomy wires are seen. Lungs and pleura: There is pulmonary vascular congestion. Suggestion of blunting of left costophreni c angle concerning for left pleural effusion and left basilar atelectasis. No pneumothorax. Underlyin g left basilar infiltrate cannot be excluded. Mediastinum: Mediastinal contours appear normal. Heart size is enlarged. Bones and chest wall: No suspicious bony lesions. Overlying soft tissues appear unremarkable. IMPRESSION: Cardiomegaly and mild congestion. Suggestion of small left pleural effusion and left basilar infiltra te versus atelectasis. No significant discrepancies from preliminary reading. Reviewed by: Vikas Berumen MD on 03/15/2024 8:36 AM PDT Approved by: Vikas Berumen MD on 03/15/2024 8:36 AM PDT Station ID: [id number]
--- NOTE | 2024-03-15 08:38 | CT Report ---
PROCEDURE: Head W/O Stroke Protocol INDICATIONS: slurred speech, focal weakness TECHNIQUE: Noncontrast 4.5 mm thick angled axial sections acquired from the foramen magnum to the vertex, with c oronal reformats. For radiation dose reduction, the following was used: automated exposure control, adjustment of mA and/or kV according to patient size. COMPARISON: None. FINDINGS: Image quality: Excellent. CSF spaces: Basal cisterns are patent. No extra-axial fluid collections. Ventricles are normal in size and shape. Brain: There is age-related volume loss No midline shift. No intracranial masses or hemorrhage. Gr ay-white matter interface is normal. Skull and face: Calvarium and visualized facial bones are intact, without suspicious lesions. Sinuses: Visualized sinuses and mastoids are clear. IMPRESSION: No acute intracranial pathology. Findings are concordant with preliminary interpretation provided by [facility]. This study fulfills neurological imaging criteria for inclusion or exclusion of acute stroke therapie s based on available published neurological imaging guidelines. Reviewed by: Vikas Berumen MD on 03/15/2024 8:37 AM PDT Approved by: Vikas Berumen MD on 03/15/2024 8:37 AM PDT Station ID: [id number]
--- NOTE | 2024-03-15 08:41 | CT Report ---
PROCEDURE: Angio Head/Neck INDICATIONS: slurred speech, focal weakness TECHNIQUE: After the administration of intravenous contrast, 1 mm thick sections acquired from the aortic arch t hrough the [place]. 3-dimensional zgjzdnc-sbmcxfcfo-hbhwxigrjx (MIP) and/or volume renderin g reformats were acquired of the central intracranial vasculature and neck separately. For radiation dose reduction, the following was used: automated exposure control, adjustment of mA and/or kV acco rding to patient size. CONTRAST: Omni 300, 80mls COMPARISON: None. FINDINGS: Image quality: Diagnostic. HEAD CT: CSF Spaces: Basal cisterns are patent. No extra-axial fluid collections. Ventricles are normal in size and shape. Brain: No significant abnormality is seen for scanning technique. Skull and face: Calvarium and visualized facial bones appear intact, without suspicious lesions. Sinuses: Visualized sinuses and mastoids are clear. HEAD CT ANGIOGRAPHY: Anterior circulation: Mild to moderate amount of atherosclerotic calcifications involving most distal intracranial portion of bilateral internal carotid arteries without hemodynamically significant sten osis. The flow within the paired anterior cerebral arteries is normal and symmetric. The flow within the middle cerebral arteries is normal and symmetric. The anterior communicating artery is seen. N o aneurysms are seen. Posterior circulation: Visualized portions of the vertebral arteries demonstrate normal caliber, and join to form a normal appearing basilar artery. Flow within the posterior cerebral arteries is norm al and symmetric. No aneurysms are seen. NECK CT ANGIOGRAPHY: Carotid system: The great vessels demonstrate a conventional anatomy as they arise from the aortic a rc. The origins of the common carotid arteries appear patent. The common carotid arteries demonstr ate normal caliber and courses. Atherosclerotic calcifications are noted involving bilateral carotid bifurcations and origins of bilateral internal carotid arteries with up to 50% stenosis involving [place] of left internal carotid artery and less than 50% stenosis involving origin of right internal. Posterior circulation: The origins of the vertebral arteries both appear widely patent. The more [place] perior extracranial portions of both vertebral arteries also demonstrate normal courses and calibers. They join to form a normal appearing basilar artery. Soft tissues: Visualized neck soft tissues demonstrate no suspicious abnormalities. Bones: No suspicious bony lesions. Visualized cervical spine appears normally aligned. IMPRESSION: 1. No hemodynamically significant stenosis or aneurysm is seen in the intracranial circulation. 2. Moderate atherosclerotic plaques are noted involving origins of bilateral internal carotid arterie s with 50-60% stenosis involving proximal left internal carotid artery and less than 50% stenosis inv olving proximal right internal carotid artery. No significant discrepancies from preliminary readings. The estimate of stenosis included in the report of the imaging study was calculated using the NASCET method Reviewed by: Vikas Berumen MD on 03/15/2024 8:40 AM PDT Approved by: Vikas Berumen MD on 03/15/2024 8:40 AM PDT Station ID: [id number]
== END 2024-03-15 05:39 | disposition short-term general hospital (02) ==
LOC: EDBD → EDUNIT# → ED 03:05
DX: I63.9 Cerebral infarction, unspecified (principal); I48.91 Unspecified atrial fibrillation; Z95.0 Presence of cardiac pacemaker; I10 Essential (primary) hypertension; I25.10 Atherosclerotic heart disease of native coronary artery without angina pectoris; E11.9 Type 2 diabetes mellitus without complications; Z95.1 Presence of aortocoronary bypass graft; Z79.84 Long term (current) use of oral hypoglycemic drugs; Z79.02 Long term (current) use of antithrombotics/antiplatelets; Z87.891 Personal history of nicotine dependence
CPT/HCPCS: 36415; 37195; 70450; 70496; 70498; 71045; 80053; 83690; 84484; 85025; 85610; 85730; 93005; 96374; 99285; J3101; Q9967